=== PATIENT | male | born 1975 | race Caucasian/White ===

== ENCOUNTER 2019-01-27 17:01 | Emergency (ER) | payer BC, SELFPAY ==
[2019-01-27 17:02] VITALS: BP 145/80; PULSE 82; RESP 16; TEMP 37; BMI 30.4
--- NOTE | 2019-01-27 17:15 | RAD_ITS ---
STUDY: X-RAY - LEFT FOOT CLINICAL: Male, 43 years old. Pain and swelling after hitting foot on furniture yesterday TECHNIQUE: 3 view(s) of the foot. COMPARISON: None. FINDINGS: Normal talus, calcaneus, and tarsal bones. Normal visualized subtalar, talonavicular, calcaneocuboid, tarsal and tarsometatarsal articulations. Normal metatarsi. There is degenerative arthrosis of the metatarsophalangeal joint of the hallux . Normal tibial and fibular sesamoid bones. Normal interphalangeal joint of the great toe. Normal phalanges of the great toe. Normal second through fifth metatarsophalangeal joints. There is an obliquely oriented nondisplaced fracture of the fourth proximal phalanx with soft tissue swelling. The soft tissue structures are otherwise unremarkable. RAD/Foot min 3 Views IMPRESSION: Nondisplaced fourth proximal phalanx fracture. Electronically Signed: Kraig Luna MD ([place]) at 17:35 EST , Service support ,
--- NOTE | 2019-01-27 17:27 | ED.VISSUMM ---
- ER Visit Summary Date of Service: 01/27/19 Chief Complaint: Left fourth and fifth toe pain History of Present Illness: The patient is a 43 M presenting with left fourth and fifth toe pain. He states he accidentally kicked his couch last night. He has had persistent pain in his left toes. He has tried Aleve at home. He has been able to ambulate with pain. He denies other injury. Physical Examination: Vitals are stable. Patient is afebrile. Alert no acute distress. HEENT exam is unremarkable. Neck is nontender Lungs are clear and equal bilaterally. Heart is regular rate and rhythm. Extremities ecchymosis and tenderness left fourth and fifth toes. Normal pulses. Skin is warm and dry. No focal neurologic deficit. Remainder of exam is unremarkable. Emergency Department Course and Treatment: Left foot x-ray shows nondisplaced fourth proximal phalanx fracture. Toes were martir taped. He is given a postop shoe. He was given prescription for Naprosyn. 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 Advised return to ED for worsening complaints. Disposition: Discharge home Impression: Left proximal phalanx fracture This note was generated with b-datum dictation software. It may contain incorrect words, spelling, and punctuation that were not noted in review of the chart prior to signing ED Disposition - Plan for ED Patient: Instructions: FRACTURE, Toe [Closed] Prescriptions: Naproxen [Naprosyn] 500 mg PO BID PRN #20 tab Prescription Printed Referrals: Guanaco Marie MD [STAFF PHYSICIAN] -
--- NOTE | 2019-01-27 17:55 | ED.DEP ---
ED Disposition - Plan for ED Patient: Instructions: FRACTURE, Toe [Closed] Prescriptions: Naproxen [Naprosyn] 500 mg PO BID PRN #20 tablet Referrals: Care Physician,No Primary [Primary Care Provider] -
--- NOTE | 2019-01-27 18:01 | ED.DEP ---
ED Disposition - Plan for ED Patient: Instructions: FRACTURE, Toe [Closed] Prescriptions: Naproxen [Naprosyn] 500 mg PO BID PRN #20 tab Prescription Printed Referrals: Guanaco Marie MD [STAFF PHYSICIAN] -
== END 2019-01-27 18:11 | disposition home or self-care (01) ==
PROVIDERS: Emergency Provider Emergency Medicine
DX: S92.515A Nondisplaced fracture of proximal phalanx of left lesser toe(s), initial encounter for closed fracture (principal); W22.09XA Striking against other stationary object, initial encounter; Y93.9 Activity, unspecified; Z72.0 Tobacco use
CPT/HCPCS: 73630; 99283